=== PATIENT | male | born 1990 | race African-American/Black ===

== ENCOUNTER 2016-10-22 11:52 | Emergency (ER) | payer OTHER ==
[~2016-10-22 11:52] MED LIST: FLAGYL PO; FLEXERIL10 MG PO; IBUPROFEN100 MG PO; IBUPROFEN800 MG PO; LORTAB 5/500 TA1 TA1 PO; NO MEDICATIONS; ORUDIS75 M1 PO; VICODIN 5/1 TAB 5/50 PO; ZITHROMAX1 G/PKT PO
[2016-10-22 12:02] LABS: URINE SOURCE CLEAN CATCH
[2016-10-22 12:08] LABS: URINE APPEARANCE CLEAR; URINE BILIRUBIN NEG (NEG); URINE BLOOD NEG (NEG); URINE COLOR YELLOW; URINE GLUCOSE NEG (NEG); URINE KETONE NEG (NEG); URINE LEUKOCYTE ESTERASE TRACE (NEG); URINE NITRATE NEG (NEG); URINE PH 6.5 (5-8); URINE PROTEIN NEG (NEG); URINE SPECIFIC GRAVITY 1.016 (1.003-1.035)
[2016-10-22 12:12] LABS: CULTURE INDICATED? YES; URBCS1 AUWI 0-2 /[HPF] (0-2); URINE BACTERIA AUWI NEG (NEGATIVE); URINE SQUAMOUS EPITHELIAL CELL OCC /[HPF]
== END 2016-10-22 13:00 | disposition home or self-care (01) ==
LOC: CFTX 11:52
PROVIDERS: Nurse Practitioner Family
DX: S30.0XXA Contusion of lower back and pelvis, initial encounter (principal); J45.909 Unspecified asthma, uncomplicated; X58.XXXA Exposure to other specified factors, initial encounter; Y93.61 Activity, american tackle football; Y92.9 Unspecified place or not applicable
CPT/HCPCS: 81003; 87086; 99283